=== PATIENT | female | born 1940 ===

== ENCOUNTER → 2018-01-06 | Outpatient (CLI) | payer OTHER ==
[~2018-01-06] MED LIST: ATORVASTATIN PO; COZAAR100 MG PO; GLIMEPIRIDE2 MG PO; GLYCOTROL CAPS1 EACH PO; JARDIANCE10 MG PO; JENTADUETO 2.51 EAC2 PO; MAXIMUM D310000 UNIT PO; METOPROLOL SUCC25 MG PO; SYNTHROID150 MCG PO; [UNRECOGNIZED DRUG - OTHER] PO
== END | disposition home or self-care (01) ==
LOC: EKG 06:14
DX: D21.21 Benign neoplasm of connective and other soft tissue of right lower limb, including hip (principal); I10 Essential (primary) hypertension

== ENCOUNTER 2018-01-13 06:00 | Day surgery (SDC) | payer OTHER | END 2018-01-13 15:40 | disposition home or self-care (01) | LOC: CIR.AMB 06:00 | DX: D17.23 Benign lipomatous neoplasm of skin and subcutaneous tissue of right leg (principal) ==